=== PATIENT | female | born 1980 | race Caucasian/White ===

== ENCOUNTER 2018-04-02 14:59 | Emergency (ER) | payer MEDICARE ==
[~2018-04-02] VITALS: Ht 160 cm; Wt 112.3 kg
[~2018-04-02 14:59] MED LIST: BENICAR20 MG PO; CHOLESTYRAMINE P4 GM PO; TYLENOL WITH C1 EACH PO; ZOFRAN4 MG PO
[2018-04-02 16:42] LABS: CHLORIDE 108 mEq/L (99-109); POTASSIUM 3.7 mEq/L (3.7-5.4); SODIUM 139 mEq/L (136-147)
[2018-04-02 16:43] LABS: GLUCOSE 105 mg/dL (70-99)
[2018-04-02 16:47] LABS: CREATININE 0.8 mg/dL (0.6-1.3); GFR ESTIMATE (CALCULATED) > 59 mL/min/
[2018-04-02 16:48] LABS: UREA NITROGEN (BUN) 9 mg/dL (9-23)
[2018-04-02 17:04] LABS: HEMATOCRIT 34.1 % (36.0-46.0); HEMOGLOBIN 10.5 G/DL (11.9-15.5); MCH 22.8 PG (29.0-34.0); MCHC 30.8 G/DL (30.0-36.0); PLATELET COUNT 295 K/uL (156-360); RBC DIS.WIDTH-CV 17.4 % (11.8-14.6); RBC DIS.WIDTH-SD 46.6 % (39-53); RED BLOOD COUNT 4.61 M/uL (3.80-5.20); WHITE BLOOD COUNT 11.1 K/uL (4.1-10.2)
[2018-04-02 17:20] LABS: APPEARANCE SL.HAZY ((CLEAR)); BILIRUBIN NEGATIVE; BLOOD NEGATIVE; COLOR YELLOW ((YELLOW)); GLUCOSE (STRIP) NEGATIVE; KETONES 5; LEUKOCYTES NEGATIVE; NITRITE NEGATIVE; PROTEIN (STRIP) 30; SPECIFIC GRAVITY 1.027 (1.000-1.030)
[2018-04-02 17:55] LABS: BACTERIA NONE SEEN /HPF; EPITHELIAL CELLS 3+ /HPF; HYALINE CASTS 0-5 /LPF; MUCUS 4+ /LPF; RED BLOOD CELLS 0-5 /HPF (0-5); UCUL ADDED? NO; WHITE BLOOD CELLS 0-5 /HPF (0-5)
[2018-04-02 18:10] LABS: ALBUMIN 3.5 g/dL (3.2-4.8)
[2018-04-02 18:13] LABS: TOTAL PROTEIN 6.2 g/dL (6.4-8.3)
[2018-04-02 18:15] LABS: TOTAL BILIRUBIN 0.3 mg/dL (0.0-1.0)
[2018-04-02 18:16] LABS: ALKALINE PHOSPHATASE 85 IU/L (3-129)
[2018-04-02 18:18] LABS: AST (GOT) 8 IU/L (2-34); DIRECT BILIRUBIN 0.1 mg/dL (0.0-0.3)
[2018-04-02 18:19] LABS: ALT (GPT) 14 IU/L (3-49)
[2018-04-02 18:21] LABS: QUANTITATIVE HCG < 4.0 MIU/ML
[2018-04-02] MEDS ORDERED: BENTYL10 MG PO (20:18)
[2018-04-02] MEDS ORDERED: ZOFRAN ODT4 MG PO (20:18)
[2018-04-02 21:04] VITALS: BP 156/68
== END 2018-04-02 21:04 | disposition home or self-care (01) ==
LOC: EME 14:59
DX: R10.31 Right lower quadrant pain (principal); R11.2 Nausea with vomiting, unspecified; K57.32 Diverticulitis of large intestine without perforation or abscess without bleeding; K42.9 Umbilical hernia without obstruction or gangrene; I10 Essential (primary) hypertension; Z88.0 Allergy status to penicillin; F17.200 Nicotine dependence, unspecified, uncomplicated
CPT/HCPCS: 74177; 80048; 80076; 81003; 84702; 85027; 99281; 99284; J1885; J2405; J7030